=== PATIENT | female | born 1990 | race Caucasian/White ===

== ENCOUNTER 2018-03-23 11:05 | Emergency (ER) | payer OTHER ==
[~2018-03-23] VITALS: Ht 160 cm; Wt 55.3 kg
[2018-03-23] MEDS ORDERED: PRENATAL + DHA1 EAC1 PO (11:55)
== END 2018-03-23 13:49 | disposition home or self-care (01) ==
LOC: ER 11:05
DX: O20.0 Threatened abortion (principal)

== ENCOUNTER 2018-06-04 21:11 | Emergency (ER) | payer OTHER ==
[~2018-06-04] VITALS: Ht 157.5 cm; Wt 60.8 kg
[~2018-06-04 21:11] MED LIST: PRENATAL + DHA1 EAC1 PO
[2018-06-05] MEDS ORDERED: INTESTINEX680 M1 PO (06:26)
[2018-06-05] MEDS ORDERED: ZOFRAN ODT4 MG SL (06:26)
[2018-06-05] MEDS ORDERED: PEPCID AC20 MG PO (06:26)
[2018-06-05] MEDS ORDERED: LEVSIN/SL0.125 MG SL (06:26)
== END 2018-06-05 06:54 | disposition home or self-care (01) ==
LOC: ER 21:11
DX: K52.9 Noninfective gastroenteritis and colitis, unspecified (principal)

== ENCOUNTER 2018-08-17 06:47 | Inpatient (IN) | payer OTHER ==
[~2018-08-17] VITALS: Ht 160 cm; Wt 64.4 kg
[~2018-08-17 06:47] MED LIST changes: +INTESTINEX680 M1 PO; +LEVSIN/SL0.125 MG SL; +PEPCID AC20 MG PO; +ZOFRAN ODT4 MG SL
== END 2018-08-20 19:29 | DRG 788 ==
LOC: OB/GYN 06:47 → LDR 06:47 → OB/GYN 19:44
PROVIDERS: ADMIT Obstetrics & Gynecology Obstetrics
PROC: 4A1HXCZ Monitoring of Products of Conception, Cardiac Rate, External Approach (ICD-10-PCS; 2018-08-17)
PROC: 10D00Z1 Extraction of Products of Conception, Low, Open Approach (ICD-10-PCS; principal; 2018-08-17 17:00)
DX: O76 Abnormality in fetal heart rate and rhythm complicating labor and delivery (principal); O82 Encounter for cesarean delivery without indication; Z3A.40 40 weeks gestation of pregnancy; Z37.0 Single live birth

== ENCOUNTER → 2020-10-26 | Outpatient (CLI) | payer OTHER | END | disposition home or self-care (01) | LOC: PRENATAL 08:00 | PROVIDERS: ATTEND Obstetrics & Gynecology Maternal & Fetal Medicine | DX: O35.0XX1 Maternal care for (suspected) central nervous system malformation in fetus, fetus 1 (principal); O35.3XX1 Maternal care for (suspected) damage to fetus from viral disease in mother, fetus 1; O98.513 Other viral diseases complicating pregnancy, third trimester; Z36.89 Encounter for other specified antenatal screening; Z3A.28 28 weeks gestation of pregnancy ==

== ENCOUNTER 2020-12-31 13:55 | Inpatient (IN) | payer OTHER ==
[~2020-12-31] VITALS: Ht 160 cm; Wt 2.7 kg
[2020-12-31] MEDS ORDERED: CALCIUM500 M2 (15:00)
== END 2021-01-03 15:15 | disposition home or self-care (01) | DRG 788 ==
LOC: LDR 13:55 → OB/GYN 17:08
PROVIDERS: ADMIT Obstetrics & Gynecology Obstetrics; ATTEND Obstetrics & Gynecology Obstetrics
PROC: 4A1HXFZ Monitoring of Products of Conception, Cardiac Rhythm, External Approach (ICD-10-PCS; 2020-12-31)
PROC: 10D00Z1 Extraction of Products of Conception, Low, Open Approach (ICD-10-PCS; principal; 2020-12-31 14:30)
DX: O34.211 Maternal care for low transverse scar from previous cesarean delivery (principal); Z37.0 Single live birth; Z3A.38 38 weeks gestation of pregnancy; Z20.822 Contact with and (suspected) exposure to COVID-19